=== PATIENT | female | born 1995 | race Caucasian/White ===

== ENCOUNTER → 2020-07-27 16:22 | Outpatient (CLI) | payer OTHER, SELFPAY ==
[2020-07-27 17:22] LABS: Add Manual Diff / Slide Review NO; Basophils Absolute Auto 100 /uL (0-100); Basophils Percent Auto 0.6 % (0-2); Eosinophils Absolute Auto 100 /uL (0-450); Eosinophils Percent Auto 1.1 % (2-4); Hematocrit 37.2 % (36-46); Hemoglobin 12.5 g/dL (12.0-16.0); Lymphocytes Absolute Auto 2300 /uL (1100-4500); Lymphocytes Percent Auto 20.5 % (25-40); Mean Corpuscular HGB Conc 33.6 % (30-36); Mean Corpuscular Hemoglobin 28.8 PG (26-34); Mean Corpuscular Volume 85.6 fL (80-100); Monocytes Absolute Auto 600 /uL (0-900); Neutrophils Absolute Auto 8200 /uL (1500-7000); Neutrophils Percent Auto 72.8 % (50-75); Platelet Count 400 X10^3/uL (150-400); Red Blood Cell Count 4.35 X10^6/uL (4.0-5.2); Red Cell Distribution Width 12.9 % (11.6-14.8); White Blood Cell Count 11.2 X10^3/uL (4.5-11.0)
[2020-07-27 18:42] LABS: Appearance Urine UA CLEAR; Bilirubin Urine UA NEGATIVE (NEGATIVE); Color Urine UA YELLOW; Glucose Urine UA NEGATIVE (Negative); Ketones Urine UA TRACE (NEGATIVE); Leukocyte Esterase Urine UA NEGATIVE (NEGATIVE); Nitrite Urine UA NEGATIVE (Negative); Occult Blood Urine UA NEGATIVE (Negative); Protein Urine UA NEGATIVE (Negative); Specific Gravity Urine UA >=1.030 (1.000-1.035); Urobilinogen Urine UA 0.2 E.U./dL (0.2)
[2020-07-27 18:44] LABS: pH Urine UA 5.5 (4.5-8.0)
[2020-07-27 19:09] LABS: Hepatitis B Surface Antigen NEGATIVE s/c (NEGATIVE); Rubella Antibody IgG 37.5 IU/mL (>15)
[2020-07-27 19:29] LABS: HIV 1 & 2 Ab/Ag 4th Gen Combo NEGATIVE (NEGATIVE); Hep C Virus Ab w/Reflex Quant NEGATIVE s/c (NEGATIVE)
[2020-07-28 06:08] LABS: RPR Screen Non Reactive (Non Reactive)
[2020-07-28 11:50] LABS: Varicella IgG Antibody 1499 index (Immune >165)
== END ==
PROVIDERS: Referring Provider Obstetrics & Gynecology; Visit Provider Obstetrics & Gynecology
DX: Z34.81 Encounter for supervision of other normal pregnancy, first trimester (principal)
CPT/HCPCS: 36415; 80055; 81003; 86787; 86803; 86850; 86900; 86901; 87086; 87389

== ENCOUNTER → 2020-09-02 14:10 | Outpatient (CLI) | payer OTHER, SELFPAY ==
[2020-09-02 20:20] LABS: Urine N gonorrhoeae NOT DETECTED
[2020-09-02 20:22] LABS: Urine Chlamydia NOT DETECTED
== END ==
PROVIDERS: Visit Provider Obstetrics & Gynecology
DX: Z34.81 Encounter for supervision of other normal pregnancy, first trimester (principal); Z3A.13 13 weeks gestation of pregnancy
CPT/HCPCS: 87491; 87591

== ENCOUNTER → 2020-10-01 16:27 | Outpatient (CLI) | payer OTHER, SELFPAY ==
[2020-10-03 18:43] LABS: AFP, Serum 40.1 ng/mL (.); Estriol, Free 1.51 ng/mL (.); Inhibin A, Dimeric 150.48 pg/mL (.); Inhibin A, MoM 1.12 (.); Maternal Ethnicity Caucasian (.); Maternal Weight 190 lbs (.); Number of Fetuses No (.); OSBR Risk 1 IN 9540 (.); Results Report (.); Test Results *Screen Negative* (.); hCG, MoM 0.72 (.); hCG, Serum 18003 mIU/mL (.)
== END ==
PROVIDERS: Referring Provider Obstetrics & Gynecology; Visit Provider Obstetrics & Gynecology
DX: Z34.82 Encounter for supervision of other normal pregnancy, second trimester (principal); Z3A.17 17 weeks gestation of pregnancy
CPT/HCPCS: 36415; 82105; 82677; 84702; 86336

== ENCOUNTER → 2020-10-20 15:40 | Outpatient (CLI) | payer OTHER, SELFPAY ==
--- NOTE | 2020-10-20 15:41 | DI.US.S_ITS ---
PROCEDURE: US OB >= 14 WEEKS FETUS INDICATIONS: ANATOMY SCAN OUTSIDE/PRIOR DATING DATA: Last menstrual period (LMP): 06/09/2020. LMP-based estimated date of delivery (RENARD): 03/06/2021 . First dating scan (date and location): 07/27/2020 . Estimated date of delivery (RENARD) from first dating scan: 03/09/2021 . TECHNIQUE: Real-time scanning was performed of the fetus, with image documentation and biometric measurements. Endovaginal scanning: No COMPARISON: [facility], , OB >= 14 WEEKS FETUS, 10/01/2020, 16:19. FINDINGS: General: A single living intrauterine gestation is present. Presentation: Variable. Placenta: Placental position is posterior , without previa. Amniotic fluid index: 10.1 cm, normal range is 5-24 cm. heart rate: 141 beats per minute. Maternal cervical canal: 4 cm long. Normal lower limit is 2.5 cm. biometrics: Biparietal diameter: 18 weeks 6 days Head circumference: 19 weeks 1 day Abdominal circumference: 19 weeks 4 days Femur length: 20 weeks 5 days Estimated gestational age from initial scan: 20 weeks Composite gestational age from present scan: 19 weeks 4 days Estimated weight and percentile: 324 g; 43rd percentile Measurement variability for biometric dating: +/- 7 days from 14 weeks to 15 weeks 6 days gestation, +/- 10 days from 16 weeks to 21 weeks 6 days gestation, +/- 2 weeks from 22 weeks to 27 weeks 6 days gestation, +/- 3 weeks for 28 weeks gestation or later. weight reference: 4500 g or EFW >90/95% is considered macrosomia or large for gestational age. EFW <10% is small for gestational age. EFW 5% or less is considered intra-uterine growth restriction. Anatomic survey: Neuro: Ventricles are non-dilated at less than 10 mm. Cisterna magna is normal at 3-11 mm. Cerebellum is normal in size and morphology. Nuchal skin fold: Normal at less than 6 mm between 14-21 weeks gestational age. Face: Nose and lips, facial profile are normal. Spine: No evidence for spina bifida. Heart: 4-chambered heart is present, with normal ventricular outflow tracts. Diaphragm: Diaphragm is intact. Stomach: Left-sided stomach is present. Kidneys: No hydronephrosis. Normal is less than 5 mm in 2nd trimester, less than 7 mm in 3rd trimester. Cord: 3-vessel cord has orthotopic insertion. Bladder: Normal in size. Extremities: All 4 extremities identified. IMPRESSION: 1. Single living IUP redemonstrated and interval growth is normal. 2. Normal anatomic survey. Dictated by: Popeye Gutierres [facility] Interpreted: Jemima Hendrix MD on 10/21/2020 at 15:26 Transcribed by: YOSSI on 10/21/2020 at 15:28 Approved by: Jemima Hendrix MD, PhD on 10/21/2020 at 18:00
== END ==
PROVIDERS: Referring Provider Obstetrics & Gynecology; Visit Provider Obstetrics & Gynecology
DX: Z34.82 Encounter for supervision of other normal pregnancy, second trimester (principal); Z3A.19 19 weeks gestation of pregnancy
CPT/HCPCS: 76811

== ENCOUNTER → 2020-12-01 15:10 | Outpatient (CLI) | payer OTHER, SELFPAY ==
[2020-12-01 17:57] LABS: Hematocrit 32.3 % (36-46); Hemoglobin 11.1 g/dL (12.0-16.0)
[2020-12-01 18:01] LABS: GTT (PREG) 1 Hour PP 50gm Dose 128 mg/dL (76-139)
== END ==
PROVIDERS: Referring Provider Obstetrics & Gynecology; Visit Provider Obstetrics & Gynecology
DX: Z34.82 Encounter for supervision of other normal pregnancy, second trimester (principal); Z3A.26 26 weeks gestation of pregnancy
CPT/HCPCS: 36415; 82950; 85014; 85018

== ENCOUNTER → 2021-02-08 15:57 | Outpatient (CLI) | payer OTHER, SELFPAY ==
[2021-02-09 19:41] LABS: Strep Grp B PCR NEG for Grp B Strep
== END ==
PROVIDERS: Visit Provider Obstetrics & Gynecology
DX: Z34.83 Encounter for supervision of other normal pregnancy, third trimester (principal); Z3A.36 36 weeks gestation of pregnancy
CPT/HCPCS: 87653

== ENCOUNTER 2021-03-10 06:55 | Inpatient (IN) | payer OTHER, SELFPAY ==
[2021-03-10] MEDS: LACTATED RINGERS 1,000 ML 100 ML IV ×2 (07:59→14:17)
[2021-03-10] MEDS: OXYTOCIN PREMIX 30 UNIT/500 ML PLAST..BAG IV (08:00)
[2021-03-10 08:09] LABS: Add Manual Diff / Slide Review NO; Basophils Absolute Auto 0 /uL (0-100); Basophils Percent Auto 0.3 % (0-2); Eosinophils Absolute Auto 100 /uL (0-450); Eosinophils Percent Auto 1.5 % (2-4); Hematocrit 34.5 % (36-46); Hemoglobin 11.8 g/dL (12.0-16.0); Lymphocytes Absolute Auto 2500 /uL (1100-4500); Lymphocytes Percent Auto 25.8 % (25-40); Mean Corpuscular HGB Conc 34.2 % (30-36); Mean Corpuscular Hemoglobin 29.7 PG (26-34); Mean Corpuscular Volume 86.7 fL (80-100); Monocytes Absolute Auto 700 /uL (0-900); Monocytes Percent Auto 7.3 % (3-14); Neutrophils Absolute Auto 6300 /uL (1500-7000); Neutrophils Percent Auto 65.1 % (50-75); Platelet Count 261 X10^3/uL (150-400); Red Blood Cell Count 3.98 X10^6/uL (4.0-5.2); Red Cell Distribution Width 13.3 % (11.6-14.8); White Blood Cell Count 9.7 X10^3/uL (4.5-11.0)
[2021-03-10 09:24] LABS: COVID19 -Nasal RAPID Negative (Negative)
[2021-03-10 09:57] VITALS: BP 120/63
--- NOTE | 2021-03-10 14:24 | PM.AN.REGBLK ---
Regional Block Pre-procedure Procedure: Continuous Lumbar Epidural for L&D Attending OB provider: Karlie Demarco PMH/ROS narrative: term labor, no comlpications ASA Class: II Labs: Hct 34.5 % (36-46) L 03/10/21 07:50 Plt Count 261 X10^3/uL (150-400) 03/10/21 07:50 Medications: Current Medications Generic Name Dose Route Start Last Admin Trade Name Freq PRN Reason Stop Dose Admin Calcium Carbonate 1,000 mg 03/10/21 07:44 Calcium Carbonate 500 Mg Tab PO Q2HR PRN Dyspepsia Carboprost Tromethamine 250 mcg 03/10/21 07:44 Carboprost 250 Mcg/Ml Ampul IM Q90M PRN Bleeding Fentanyl 50 mcg 03/10/21 07:44 Fentanyl 100 Mcg/2 Ml Inj IV Q1H PRN Pain, Moderate (4-6) Lactated Ringer's 1,000 mls @ 100 mls/hr 03/10/21 07:45 03/10/21 14:17 Lactated Ringers IV 100 mls/hr CONT MELISSA Administration Oxytocin/Lactated Ringer's 30 unit in 500 mls @ 200 mls/hr 03/10/21 07:44 Oxytocin Premix IV CONT PRN Bleeding Protocol Oxytocin/Lactated Ringer's 30 unit in 500 mls @ 3 mls/hr 03/10/21 07:45 03/10/21 08:00 Oxytocin Premix IV 3 milliunit/min TITRATE MELISSA 3 mls/hr Administration Protocol 3 MILLIUNIT/MIN Tranexamic Acid 1,000 mg/ 100 mls @ 200 mls/hr 03/10/21 07:44 Sodium Chloride IV NOW PRN Bleeding Methylergonovine Maleate 0.2 mg 03/10/21 07:44 Methylergonovine 0.2 Mg/Ml Vial IM NOW PRN Bleeding Methylergonovine Maleate 0.2 mg 03/10/21 07:44 Methylergonovine 0.2 Mg Tablet PO Q6HR PRN Heavy Bleeding Metoclopramide HCl 10 mg 03/10/21 07:44 Metoclopramide 10 Mg/2 Ml Inj IV NOW PRN Nausea And Vomiting Misoprostol 1,000 mcg 03/10/21 07:44 Misoprostol 200 Mcg Tablet DE NOW PRN Bleeding Misoprostol 400 mcg 03/10/21 07:44 Misoprostol 200 Mcg Tablet SL NOW PRN Bleeding Misoprostol 800 mcg 03/10/21 07:44 Misoprostol 200 Mcg Tablet DE NOW PRN Bleeding Naloxone HCl 0.2 mg 03/10/21 07:44 Naloxone 0.4 Mg/Ml Vial IV Q2MIN PRN Opiate Reversal Ondansetron HCl 4 mg 03/10/21 07:44 Ondansetron 4 Mg/2 Ml Inj IV Q4HR PRN Nausea And Vomiting Oxytocin 10 unit 03/10/21 07:44 Oxytocin 10 Unit/Ml Vial IM NOW PRN Bleeding Allergies: Allergies Allergy/AdvReac Type Severity Reaction Status Date / Time No Known Drug Allergies Allergy Verified 03/01/21 09:19 Procedure Insertion date: 03/10/21 Insertion time: 14:25 Prep/Local: betadine x3 and 1% lidocaine Interspace: L3-4 Patient position: sitting Needle: 18 gauge [employer] (CSE: 27g Pencan through [employer], clear CSF, 1mL 0.25% bupiv MPF) Loss of resistance with: saline LINA at (cm): 7 Catheter placed at SKIN (cm): 13 Catheter in SPACE (cm): 6 Insertion: No CSF, No Blood, No Paresthesia with insertion, No Paresthesia with injection and No Test dose reaction Initial Medications TEST DOSE time: 14:38 TEST DOSE: 1.5% lidocaine with epinephrine 1:200k (mL): 3 BOLUS DOSE time: 14:49 BOLUS DOSE (mL): 3 BOLUS DOSE med: other (infusate) Infusion INFUSION: 0.125% bupivacaine and with fentanyl 2 mcg/mL Initial rate (mL/hr): 6 Post-procedure Anesthesia time START: 14:26 Anesthesia time END: 19:15 Post-procedure Anesthesia Assessment: Yes CV function: HR/BP stable, Yes Resp function: RR/sat/airway adequate, Yes Mental status appropriate and No Anesthesia complications
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
--- NOTE | 2021-03-10 19:53 | PM.OBPRVD ---
Events: Labor Induction Labor & Delivery Delivery date: 03/10/21 Cervical ripening method: none Induction method: per pitocin protocol Delivery augmentation: rupture of membranes Delivery monitor: external FHT and external uterine Route of delivery: vacuum extraction Indication for instrumentation: nonreassuring FHR tracing Episiotomy description: None L&D Laceration Description: Periurethral - 1st Degree and Perineal - 1st Degree Delivery repair: vicryl and chromic Estimated blood loss (mL): 300 Anesthesia Type: Epidural Complications: None Narrative: Patient complete and pushed for 35 minutes. At 7:15 p.m., a live female infant delivered with vacuum assistance in the OBINNA presentation, over an intact perineum. No nuchal cord. The remainder of the body delivered without difficulty and was placed on mom's abdomen. After the cord stopped pulsing, the cord was double clamped and cut. Cord bloods were obtained. Pitocin was given in the IV fluids. The placenta delivered intact with a three-vessel cord at 7:22 p.m.. Fundus was massaged to firm. A first-degree perineal laceration was repaired with 3-0 chromic. A periurethral laceration in the midline was repaired with 4-0 chromic. Hemostasis was achieved. Estimated blood loss 300 cc. Apgars 8 at 1 minute and 9 at 5 minutes. Epidural analgesia. Mom and infant stable to recovery. [place] Baby 1: Infant gender: Female Presentation: vertex Position: Right Occiput Anterior Placenta delivery description: Spontaneous Cord Vessel Description: 3 Vessels score (1 min): 8 score (5 min): 9 weight: 7 lb 15 oz Plan for aftercare: Routine care
[2021-03-10] MEDS: IBUPROFEN 600 MG TABLET PO (20:40)
[2021-03-10] MEDS: ACETAMINOPHEN 325 MG TABLET 650 MG PO (20:41)
[2021-03-10] MEDS: LANOLIN OINT 7 GM 1 APPLIC TOP (20:41)
[2021-03-11] MEDS: ACETAMINOPHEN 325 MG TABLET 650 MG PO ×2 (03:36→09:57)
[2021-03-11] MEDS: IBUPROFEN 600 MG TABLET PO ×2 (03:37→09:57)
[2021-03-11 07:53] LABS: Hematocrit 32.9 % (36-46); Hemoglobin 10.9 g/dL (12.0-16.0)
[2021-03-11] MEDS: DOCUSATE 100 MG CAPSULE PO (09:57)
[2021-03-11] MEDS: PRENATAL VIT,CALC/IRON/FOLIC 1 TABLET 1 TAB PO (09:57)
--- NOTE | 2021-03-11 13:44 | P.DS_ITS ---
Discharge Providers Provider Date of admission: 03/10/21 06:55 Discharge Date: 03/11/21 Primary care physician: Doctor Galo MD Consults: 03/11/21 19:44 Consult to Clinical Informatics Manager Routine Comment: Discharge provider: Karlie Demarco MD Summary Hospital Course Date Patient Seen: 03/11/21 Time Patient Seen: 13:44 Diagnoses: 40-,4/7 weeks gestation Induction of labor with Pitocin Vacuum assisted vaginal delivery First-degree perineal and periurethral laceration repair Hospital Course: Patient is a 25-year-old 2 para 2 day # 1 status post vacuum assisted vaginal delivery after induction of labor at 40-,4/7 weeks gestation. Patient presented and was started on Pitocin. Artificial rupture membranes was performed mid morning on March 10, 2021. An epidural was placed for pain management. She progressed to complete dilation. She had a vacuum assisted vaginal delivery due to deep variable decelerations during pushing. Her course was unremarkable and she is discharged home on day # 1. Peripartum Data Infant Delivery Method: Assisted Delivery (Vacuum) Laceration Description: Periurethral - 1st Degree and Perineal - 1st Degree Episiotomy description: None Procedures: Pitocin induction of labor Epidural analgesia Vacuum assisted vaginal delivery Repair of first-degree periurethral and first-degree perineal lacerations complications: none [place] 1: Gender: Female Disposition of : home Status at Discharge Cognitive/behavioral status at discharge: oriented Functional status at discharge: independent ambulation Overall status at discharge: patient is progressing back to baseline Time Spent with Patient Time attestation: Total time spent providing and/or coordinating discharge services: Time spent: Less than 30 minutes Objective Labs Result Diagrams: 03/11/21 07:10 Labs: Laboratory Results - last 24 hr 03/11/21 07:10 Hgb 10.9 L Hct 32.9 L Exam Narrative Exam Narrative: Generally: Patient is sitting up in bed, no acute distress Fundus: Firm at U-1 Extremities: Trace edema, negative Homans Discharge Plan Discharge Plan Patient Disposition: Home Provider Discharge Comment: Call with fever, chills, or bleeding vaginally more than a pad in an hour Ibuprofen 600 mg every 6 hours as needed for cramping Stool softeners as needed Discharge orders & Medications Prescriptions: Continued prenat.vits,honey,[id number] Tablet 1 tab PO DAILY 0RF Discontinued pyridoxine (vitamin B6) 25 mg tablet 25 mg PO DAILY 0RF Rx Instructions: diacontinued Follow up/Referrals: Karlie Demarco MD [Physician] - 6 Weeks Diet/Activity/Treatments Diet: Regular Activity: Nothing in the vagina for 6 weeks Skin/Wound/Dressing Care Report to your healthcare provider any signs of infection, such as:: chills, fever, increased pain, unusual drainage and unusual redness Visit Report/Discharge Packet Instructions: DI for Labor and Delivery, Vaginal Discharge Data Primary Care Provider: Miscellaneous,Doctor
[2021-03-11 14:12] VITALS: BP 110/65; PULSE 70; RESP 18; TEMP 36.7
== END 2021-03-11 15:05 | disposition home or self-care (01) | DRG 807 ==
PROVIDERS: Admitting Provider Obstetrics & Gynecology; Referring Provider Obstetrics & Gynecology; Visit Provider Obstetrics & Gynecology
DX: O48.0 Post-term pregnancy (principal); Z37.0 Single live birth; Z3A.40 40 weeks gestation of pregnancy; O70.0 First degree perineal laceration during delivery; O71.82 Other specified trauma to perineum and vulva
CPT/HCPCS: 01967; 36415; 59050; 59400; 85014; 85018; 85025; 86850; 86900; 86901; 87635; C9803; G0379; J2590